=== PATIENT | female | born 1955 | race African-American/Black ===

== ENCOUNTER 2017-05-09 12:50 | Outpatient (CLI) | payer BC | END 2017-05-09 12:51 | disposition home or self-care (01) | LOC: BICMAMMO 12:50 | PROVIDERS: ATTEND Internal Medicine | DX: Z12.31 Encounter for screening mammogram for malignant neoplasm of breast (principal) | CPT/HCPCS: 77063 ==

== ENCOUNTER 2017-05-15 07:43 | Outpatient (CLI) | payer BC | END 2017-05-15 07:44 | disposition home or self-care (01) | LOC: BICMAMMO 07:43 | PROVIDERS: ATTEND Internal Medicine | DX: Z13.820 Encounter for screening for osteoporosis (principal); M85.80 Other specified disorders of bone density and structure, unspecified site | CPT/HCPCS: 77080 ==

== ENCOUNTER 2018-05-21 10:55 | Outpatient (CLI) | payer BC | END 2018-05-21 10:56 | disposition home or self-care (01) | LOC: BICMAMMO 10:55 | PROVIDERS: ATTEND Internal Medicine | DX: Z12.31 Encounter for screening mammogram for malignant neoplasm of breast (principal) | CPT/HCPCS: 77063; 77067 ==

== ENCOUNTER 2019-05-22 12:12 | Outpatient (CLI) | payer BC ==
--- NOTE | 2019-05-22 13:53 | MMO ---
Bilateral MAMMO Bilat Screen [facility]. CLINICAL HISTORY: Patient is 63 years old and is seen for screening. The patient has no family history of breast cancer. The patient has no personal history of cancer. The patient has a history of left Excisional Biopsy in April, - benign and left Ultrasound Guided Core Biopsy - benign. VIEWS: The views performed were: bilateral craniocaudal with tomosynthesis and bilateral mediolateral oblique with tomosynthesis. FILMS COMPARED: The present examination has been compared to prior imaging studies performed at [facility] on 03/11/2015, 03/21/2016, 05/09/2017 and 05/21/2018. This study has been interpreted with the assistance of computer-aided detection. MAMMOGRAM FINDINGS: There are scattered fibroglandular densities. There are stable equal density, irregular masses with circumscribed margins and associated coarse popcorn-like calcifications seen in both breasts. There are no suspicious masses, suspicious calcifications, or new areas of architectural distortion. IMPRESSION: THERE IS NO MAMMOGRAPHIC EVIDENCE OF MALIGNANCY. A ROUTINE FOLLOW-UP MAMMOGRAM IN 1 YEAR IS RECOMMENDED. THE RESULTS OF THIS EXAM WERE SENT TO THE PATIENT. ACR BI-RADS Category 2 - Benign finding MAMMOGRAPHY NOTE: 1. A negative mammogram report should not delay a biopsy if a dominant of clinically suspicious mass is present. 2. Approximately 10% to 15% of breast cancers are not detected by mammography. 3. Adenosis and dense breasts may obscure an underlying neoplasm. Reported by: PANDA PHILIPPE MD Electonically Signed: [id number]
== END 2019-05-22 12:13 | disposition home or self-care (01) ==
LOC: BICMAMMO 12:12
PROVIDERS: ATTEND Internal Medicine
DX: Z12.31 Encounter for screening mammogram for malignant neoplasm of breast (principal)
CPT/HCPCS: 77063; 77067

== ENCOUNTER 2020-10-13 12:03 | Outpatient (CLI) | payer MEDICARE, BC | END 2020-10-13 12:04 | disposition home or self-care (01) | LOC: BICMAMMO 12:03 | PROVIDERS: ATTEND Internal Medicine | DX: Z12.31 Encounter for screening mammogram for malignant neoplasm of breast (principal); Z91.89 Other specified personal risk factors, not elsewhere classified | CPT/HCPCS: 77063; 77067 ==

== ENCOUNTER 2021-11-24 13:14 | Outpatient (CLI) | payer MEDICARE, BC | END 2021-11-24 13:15 | disposition home or self-care (01) | LOC: BICMAMMO 13:14 | PROVIDERS: ATTEND Internal Medicine | DX: Z12.31 Encounter for screening mammogram for malignant neoplasm of breast (principal); Z91.89 Other specified personal risk factors, not elsewhere classified | CPT/HCPCS: 77063; 77067 ==

== ENCOUNTER 2022-08-14 06:51 | Day surgery (SDC) | payer MEDICARE, BC ==
[2022-08-13 16:21] VITALS: BMI 33.6
[~2022-08-14 06:51] MED LIST: EPINEPHrine 0.3 MG in Ophthalmic Irrigation Solution 500 ML IRR SCH; Midazolam HCl 2 mg/2 ml Vial ONE; fentaNYL PF 100 MCG/2 ML SYRINGE ONE
[2022-08-14] MEDS ORDERED: Cyclopentolate 1% Opth Drop 2 ML BOT ONE (07:16)
[2022-08-14] MEDS ORDERED: Phenylephrine 2.5% Ophth Soln 5 ML BOT ONE (07:16)
[2022-08-14] MEDS ORDERED: Bupivacaine 0.75% 10 ML VIAL ONE (08:38)
[2022-08-14] MEDS ORDERED: Lidocaine 4% PF 5 ML AMP ONE (08:38)
[2022-08-14] MEDS ORDERED: Triamcinolone 40 MG/ML VIAL ONE (08:38)
[2022-08-14] MEDS ORDERED: PROPOFOL 200 MG/20 ML VIAL ONE (08:38)
[2022-08-14] MEDS ORDERED: Maxitrol 0.1% Opth Oint 3.5 GM TUBE ONE (08:38)
== END 2022-08-14 10:10 | disposition home or self-care (01) ==
LOC: SDC 06:51
PROVIDERS: ATTEND Ophthalmology Retina Specialist
PROC: 08T43ZZ Resection of Right Vitreous, Percutaneous Approach (ICD-10-PCS; principal; 2022-08-14)
PROC: 08QE3ZZ Repair Right Retina, Percutaneous Approach (ICD-10-PCS; 2022-08-14)
DX: H43.11 Vitreous hemorrhage, right eye (principal); I10 Essential (primary) hypertension; E78.5 Hyperlipidemia, unspecified; Z79.83 Long term (current) use of bisphosphonates; Z79.84 Long term (current) use of oral hypoglycemic drugs; Z79.899 Other long term (current) drug therapy; Z88.0 Allergy status to penicillin; Z91.013 Allergy to seafood
CPT/HCPCS: J0171; J2250; J2704; J3301; J3490

== ENCOUNTER 2024-07-30 13:36 | Outpatient (CLI) | payer MEDICARE, BC | END 2024-07-30 13:37 | disposition home or self-care (01) | LOC: BICMAMMO 13:36 | PROVIDERS: ATTEND Nurse Practitioner | DX: Z12.31 Encounter for screening mammogram for malignant neoplasm of breast (principal); Z91.89 Other specified personal risk factors, not elsewhere classified | CPT/HCPCS: 77063; 77067 ==